=== PATIENT | female | born 1990 | race African-American/Black ===

== ENCOUNTER 2017-06-18 13:01 | Emergency (ER) | payer MEDICAID | END 2017-06-18 14:38 | disposition home or self-care (01) | LOC: D.ER 13:01 | DX: J01.90 Acute sinusitis, unspecified (principal) ==

== ENCOUNTER 2017-12-12 19:35 | Emergency (ER) | payer SELFPAY ==
[~2017-12-12] VITALS: Ht 157.5 cm; Wt 72.7 kg
[2017-12-12 20:03] VITALS: Ht 157.5 cm; Wt 72.7 kg
[2017-12-12] MEDS ORDERED: BUTALB-APAP-CA1 EACH PO (21:28)
[2017-12-12 21:37] VITALS: BP 133/70
== END 2017-12-12 21:40 | disposition home or self-care (01) ==
LOC: D.ER 19:35
DX: G43.909 Migraine, unspecified, not intractable, without status migrainosus (principal)

== ENCOUNTER 2019-02-27 22:50 | Emergency (ER) | payer SELFPAY ==
[~2019-02-27] VITALS: Ht 157.5 cm; Wt 75.0 kg
[2019-02-27 22:50] VITALS: Ht 157.5 cm; Wt 75.0 kg
[~2019-02-27 22:50] MED LIST: BUTALB-APAP-CA1 EACH PO
[2019-02-27] MEDS ORDERED: HYDROCODONE-A1 UDTA2 PO (23:13)
[2019-02-27 23:50] VITALS: BP 151/89
== END 2019-02-27 23:50 | disposition home or self-care (01) ==
LOC: D.ER 22:50
DX: S20.212A Contusion of left front wall of thorax, initial encounter (principal); V49.9XXA Car occupant (driver) (passenger) injured in unspecified traffic accident, initial encounter; S91.115A Laceration without foreign body of left lesser toe(s) without damage to nail, initial encounter; F17.210 Nicotine dependence, cigarettes, uncomplicated